=== PATIENT | female | born 1980 | race African-American/Black ===

== ENCOUNTER 2023-12-22 19:42 | Emergency (ER) | payer MEDICAID ==
[~2023-12-22] VITALS: Ht 162.6 cm; Wt 163.0 kg
[2023-12-22 20:14] VITALS: BP 116/76; PULSE 65; RESP 18; TEMP 98.1; O2SAT 99
[2023-12-22 20:31] VITALS: O2SAT 100
[2023-12-23] MEDS ORDERED: IBUP-2028 MT (00:27)
[2023-12-23] MEDS ORDERED: AMOX250S70 MT (00:27)
[2023-12-23] MEDS ORDERED: BUSP10TA4 MT (10:27)
[2023-12-23] MEDS ORDERED: QUET50TA MT (10:27)
== END 2023-12-23 01:36 | disposition left against medical advice (07) ==
LOC: ER 19:42
DX: R68.89 Other general symptoms and signs (principal); Z53.21 Procedure and treatment not carried out due to patient leaving prior to being seen by health care provider
CPT/HCPCS: 99281

== ENCOUNTER 2023-12-23 06:31 | Emergency (ER) | payer MEDICAID ==
[~2023-12-23 06:31] MED LIST: AMOX250S70 MT; IBUP-2028 MT
[2023-12-23] MEDS ORDERED: QUET50TA MT (10:27)
[2023-12-23] MEDS ORDERED: BUSP10TA4 MT (10:27)
[2023-12-23 10:56] VITALS: BP 134/76; PULSE 78; RESP 16; TEMP 36.94740; O2SAT 99
== END 2023-12-23 12:51 | disposition home or self-care (01) ==
LOC: ER 06:50
DX: F20.9 Schizophrenia, unspecified (principal); F41.9 Anxiety disorder, unspecified; Z76.0 Encounter for issue of repeat prescription; Z59.00 Homelessness unspecified; Z79.899 Other long term (current) drug therapy
CPT/HCPCS: 99281